=== PATIENT | female | born 1980 | race Caucasian/White ===

== ENCOUNTER 2019-09-04 16:33 | Emergency (ER) | payer BC ==
[2019-09-04 17:52] VITALS: BP 109/71
--- NOTE | 2019-09-04 18:28 | ED Physician Documentation ---
PD HPI URI - Stated complaint Stated Complaint: COUGH,SWEATS,BODY ACHES - Chief complaint Chief Complaint: Resp - History obtained from History obtained from: Patient - History of Present Illness Timing - onset: How many weeks ago (1) Timing duration: Weeks (1) Timing details: Abrupt onset, Still present Associated symptoms: Fever, Nasal congestion, Dry cough. No: Hemoptysis, Chest pain, Dyspnea, NVD, Bilateral edema Contributing factors: No: Sick contact, Travel, Immunocompromised, COPD / asthma Worsened by: Activity (makes her cough and feel dyspneic), Position (trouble sleeping the past few nights, since lying and coughing have kept you from sleeping well.) Similar symptoms before: Has not had sx before Review of Systems Constitutional: reports: Myalgias. denies: Fever, Chills Nose: reports: Congestion. denies: Rhinorrhea / runny nose Throat: reports: Sore throat Cardiac: denies: Palpitations PD PAST MEDICAL HISTORY - Past Medical History Past Medical History: Yes Cardiovascular: None Respiratory: None Endocrine/Autoimmune: HyPOthyroidism - Present Medications Home Medications: Ambulatory Orders Medication Instructions Recorded Confirmed Albuterol Sulf [Ventolin Hfa 2 puffs INH Q4HR PRN #1 inhaler 09/04/19 Inhaler] Benzonatate [Tessalon Perle] 100 - 200 mg PO TID PRN #30 capsule 09/04/19 Doxycycline Monohydrate 100 mg PO BID #14 tablet 09/04/19 dexAMETHasone [Decadron] 4 mg PO DAILY #7 tablet 09/04/19 - Allergies Allergies/Adverse Reactions: Allergies Allergy/AdvReac Type Severity Reaction Status Date / Time No Known Drug Allergies Allergy Verified 09/04/19 17:06 - Social History Does the pt smoke?: No Smoking Status: Never smoker Does the pt drink ETOH?: No Does the pt have substance abuse?: No PD ED PE NORMAL - Vitals Vital signs reviewed: Yes - General General: Alert and oriented X 3, Well developed/nourished - HEENT HEENT: Ears normal, Moist mucous membranes, Pharynx benign - Neck Neck: Supple, no meningeal sign, No JVD - Cardiac Cardiac: RRR, No murmur - Respiratory Respiratory: Clear bilaterally - Abdomen Abdomen: Soft, Non tender, Non distended - Rectal Rectal: Deferred - Derm Derm: Normal color, Warm and dry, No rash - Extremities Extremities: No tenderness to palpate, Normal ROM s pain, No edema, No calf tenderness / cord - Neuro Neuro: Alert and oriented X 3, No motor deficit, Normal speech Results - Vitals Vitals: Vital Signs - 24 hr 09/04/19 09/04/19 09/04/19 17:02 17:52 19:06 Temperature 37.3 C 37.0 C Heart Rate 104 H 108 H 110 H Respiratory 18 17 18 Rate Blood Pressure 131/78 H 109/71 O2 Saturation 97 97 Oxygen O2 Source Room air - Rads (name of study) high Radiology: Prelim report reviewed, Final report received, See rad report PD MEDICAL DECISION MAKING - ED course Complexity details: considered differential, d/w patient Departure - Departure Disposition: 01 Home, Self Care Clinical Impression: Upper respiratory infection Qualifiers: URI type: unspecified URI Qualified Code(s): J06.9 - Acute upper respiratory infection, unspecified Pneumonia Qualifiers: Pneumonia type: due to unspecified organism Laterality: left Lung location: upper lobe of lung Qualified Code(s): J18.9 - Pneumonia, unspecified organism Condition: Stable Record reviewed to determine appropriate education?: Yes Instructions: ED Upper Resp Infec Abx Tx Prescriptions: Albuterol Sulf [Ventolin Hfa Inhaler] 2 puffs INH Q4HR PRN #1 inhaler PRN Reason: Shortness Of Air/Wheezing Benzonatate [Tessalon Perle] 100 - 200 mg PO TID PRN #30 capsule PRN Reason: Cough dexAMETHasone [Decadron] 4 mg PO DAILY #7 tablet Doxycycline Monohydrate 100 mg PO BID #14 tablet Comments: These type of infections commonly are viral. There was a small patch on your x- ray that suggests early pneumonia. This may still be viral but we can treated with an antibiotic as the chance of bacterial does increase with localized infections like that. Stay well-hydrated. Tylenol or ibuprofen if needed for fevers or pains. Use an albuterol inhaler 2 puffs 4 times a day for the next 7 to 10 days and extra times if needed for wheeziness and cough. Decadron steroid for inflammation of the airways to decrease coughing and improve breathing. Tessalon if needed for cough suppression. Doxycycline antibiotic as directed for a week. He should see improvement over the next several days and not feel as bad. However there may be some mild cough that persists for even a couple more weeks even after the infection improves. Discharge Date/Time: 09/04/19 19:24
[2019-09-04] MEDS ORDERED: CHERRY SYRUP 10 ML UDC PO ONE (18:51)
[2019-09-04] MEDS ORDERED: DEXAMETHASONE 10 MG/ML VIAL PO STA (18:51)
[2019-09-04] MEDS ORDERED: BENZONATATE 100 MG CAPSULE PO STA (18:51)
[2019-09-04] MEDS ORDERED: ALBUTEROL NEB 2.5 MG/3 ML INH STA (18:51)
--- NOTE | 2019-09-04 18:52 | XRAY Report ---
Reason: cough Procedure Date: 09/04/2019 Accession Number: [id number] / [id number] Procedure: XR - Chest 2 View X-Ray CPT Code: 28776 Final Report FULL RESULT: EXAM: CHEST RADIOGRAPHY EXAM DATE: 09/04/2019 06:26 PM. CLINICAL HISTORY: Cough. COMPARISON: None. TECHNIQUE: 2 views. FINDINGS: Lungs/Pleura: Subtle lingular groundglass opacities noted. Mild bronchial wall thickening. No effusions or pneumothorax. On lateral view, patchy opacities project over the lower lumbar spine. Mediastinum: Heart and mediastinal contours are unremarkable. Other: None. IMPRESSION: 1. Left upper lobe pneumonia. Recommend follow-up radiographs to document resolution of findings. 2. No effusions or pneumothorax. 3. Bronchial wall thickening concerning for bronchitis or reactive airways disease. RADIA
[2019-09-04] MEDS ORDERED: DOXYCYCLINE 100 MG TABLET PO STA (18:55)
== END 2019-09-04 19:24 | disposition home or self-care (01) ==
LOC: ED 16:33
DX: J06.9 Acute upper respiratory infection, unspecified (principal); J18.9 Pneumonia, unspecified organism
CPT/HCPCS: 71046; 94640; 94664; 99284; A9270

== ENCOUNTER 2020-02-28 11:43 | Outpatient (CLI) | payer MEDICAID ==
[2020-02-28 13:10] LABS: HB2 TOTAL 15.3 g/dL; HEMOGLOBIN A1C 0.52 g/dL; HEMOGLOBIN A1C % 5.3 % (4.6-6.2)
== END 2020-02-28 11:44 | disposition home or self-care (01) ==
LOC: LAB 11:43
PROVIDERS: ATTEND Obstetrics & Gynecology
DX: E28.2 Polycystic ovarian syndrome (principal)
CPT/HCPCS: 36415; 81599; 82951; 83036; 83498; 84146; 84403

== ENCOUNTER 2020-05-13 08:55 | Outpatient (CLI) | payer MEDICAID ==
[2020-05-13 19:16] LABS: CANDIDA GROUP DNA NEGATIVE (NEGATIVE); CANDIDA KRUSEI DNA NEGATIVE (NEGATIVE); TRICHOMONAS VAGINALIS DNA NEGATIVE (NEGATIVE)
== END 2020-05-13 23:59 | disposition home or self-care (01) ==
LOC: LAB.R 08:55
PROVIDERS: ATTEND Obstetrics & Gynecology
DX: N89.8 Other specified noninflammatory disorders of vagina (principal)
CPT/HCPCS: 87661; 87801

== ENCOUNTER 2020-08-12 08:53 | Outpatient (CLI) | payer MEDICAID ==
[2020-08-12 15:45] LABS: ALBUMIN 4.1 g/dL (3.2-5.5); ALBUMIN/GLOBULIN RATIO 1.3 (1.0-2.2); ALKALINE PHOSPHATASE 48 IU/L (42-121); ALT ALANINE AMINOTRANSFERASE 14 IU/L (10-60); AST ASPARTATE AMINOTRANSFERASE 16 IU/L (10-42); BILIRUBIN,TOTAL 0.9 mg/dL (0.2-1.0); BUN - BLOOD UREA NITROGEN 12 mg/dL (6-20); CALCIUM 9.1 mg/dL (8.5-10.3); CARBON DIOXIDE - CO2 23 mmol/L (21-32); CHLORIDE 105 mmol/L (101-111); CHOL/HDL RATIO 3.3 (<4.4); CHOLESTEROL 195 mg/dL; CREATININE 0.9 mg/dL (0.4-1.0); GLUCOSE 83 mg/dL (70-100); HDL CHOLESTEROL 60 mg/dL; LDL CHOLESTEROL,CALCULATED 105 mg/dL; LDL/HDL RATIO 1.8 (<4.4); SODIUM 137 mmol/L (135-145); TOTAL PROTEIN 7.3 g/dL (6.7-8.2); VLDL CHOLESTEROL 30 mg/dL
[2020-08-12 15:55] LABS: THYROID STIMULATING HORMONE 2.41 uIU/mL (0.34-5.60)
[2020-08-12 15:57] LABS: FREE T4 (FREE THYROXINE) 0.98 ng/dL (0.58-1.64)
== END 2020-08-12 08:54 | disposition home or self-care (01) ==
LOC: LAB.S 08:53
PROVIDERS: ATTEND Obstetrics & Gynecology
DX: E03.9 Hypothyroidism, unspecified (principal); E78.1 Pure hyperglyceridemia; E78.5 Hyperlipidemia, unspecified; L68.0 Hirsutism; E28.2 Polycystic ovarian syndrome; Z02.89 Encounter for other administrative examinations; E66.9 Obesity, unspecified
CPT/HCPCS: 36415; 80053; 80061; 83721; 84439; 84443

== ENCOUNTER 2020-11-12 07:00 | Outpatient (CLI) | payer MEDICAID | END 2020-11-12 23:59 | disposition home or self-care (01) | LOC: LAB.S 07:00 | PROVIDERS: ATTEND Physician Assistant Medical | DX: R30.0 Dysuria (principal) | CPT/HCPCS: 87086; 87181 ==

== ENCOUNTER 2021-02-10 09:34 | Outpatient (CLI) | payer MEDICAID ==
[2021-02-10 10:20] VITALS: BP 117/79
--- NOTE | 2021-02-10 10:20 | SLEEP CARE CONSULTATION ---
Information from patient questionnaire entered by Deonna Dowell. I have reviewed and concur with the information entered by Deonna Dowell. This document represents the service I personally performed and the decisions made by me, Frances Benítez ARNP. History of Present Illness Service Date and Time: 02/10/2021 09 Reason for Visit: New patient Chief Complaint: reports: Insomnia, Unrefreshed sleep (sometimes), Snoring (when falls asleep sitting up, other massey she "hums" while sleeping), Excessive daytime sleepiness (some days), Fatigue, Frequent awakenings at night. denies: Observed pauses in breathing Date of Onset: 2-3 years Usual bedtime: 9-10 pm Time it takes to fall asleep: 4-5 hours most nights, 1-2 others Snores at night: No Observed to quit breathing while asleep: No Sleeps alone due to snoring: No Number of times waking at night: 1-2 Reasons for waking at night: reports: Bathroom, Other (unknown reason). denies: Choking, Snoring, Gasping for air Toss, Turn, or Twitch while sleeping: Yes Recalls having dreams: No Usually gets out of bed at: 6-6:30 am Feels refreshed in the morning: Yes (most days) Morning headache: Yes (often, but not daily. Resolves after I take tylenol) Sleepy or fatigued during the day: Yes Ever fallen asleep while driving: No Takes day naps: No Dreams during day naps: No Prior sleep studies: No Additional HPI information: I had the pleasure of seeing AVA MIRAMONTES today regarding the possibility of her having a sleep disorder. Her current complaints are insomnia, frequent night awakenings and fatigue. She can get to sleep from 30 minutes to 2 hours. She goes to bed around 9-10 PM. She only sleeps through night 2 nights a week. She then gets up through night frequently. She wakes up at 5 when gets up for work but does go back to sleep until about 6 AM. Her states she makes a humming sound when sleeping mostly. She has been known to snore when she falls asleep sitting up on couch. She denies any pauses in breathing, gasping or choking in sleep. Her does snore loudly and moves a lot in bed which can occasionally wake her up. She states her mother and father both snore and her father should use a CPAP but is not compliant. Her mother does use some breathing machine to reduce snoring due to her sinuses. She also had a grandfather that has sleep apnea and uses a PAP machine. - Parasomnia Symptoms Ever been unable to move upon waking from sleep: No Walks in sleep: No Talks in sleep: Yes (sometimes, not frequent) Ever acted out dreams in sleep: No Ever felt weak in the knees when startled or emotional: No Bothered by creepy, crawly, restless sensations in legs: Yes (mostly when resting from knees down; gets leg cramps frequently) Problems with memory or concentration: Yes (both, sometimes) Subjective Initial [place] Sleepiness Scale score: 2 (in 2020) Past Medical History Past Medical History: reports: Hypothyroidism, Anxiety, Mood disorder (?; PTSD), GERD Social History The patient's occupation is a [employer]. Patient is and lives in [place]. Have you smoked in the past 12 months: No Quit date: 10/08/2015 Alcohol use: No Caffeine use: Yes Caffeine amount and frequency: 1-3 cups of coffee daily, 1-2 cans 16 oz red bull sugarfree monthly Family History Family history of sleep disordered breathing: Yes Family Hx Sleep Apnea: Mother: Snoring, Sleep apnea - Treated, Father: Snoring, Sleep apnea - Untreated, Grandparent: Snoring, Sleep apnea - Treated Allergies and Home Medications Drug allergies reviewed: Yes (NKDA) Home medication list reviewed: Yes Allergy and home medication list: Spironolactone Omeprazole DR Levothyroxine escitalopram Review of Systems Weight gain over past 5 years: 70-80 Weight loss over past 5 years: 40-50 Gastrointestinal: reports: heartburn (treated) Neurological: denies: headaches Psychiatric: reports: anxiety (treated), depression (treated), mood disorder Ear/Nose/Throat: reports: other (ears feel plugged). denies: tonsillectomy Endocrine: reports: thyroid disease Musculoskeletal: reports: joint pain, neck pain, back pain, joint swelling, muscle pain or cramping Physical Exam Blood Pressure: 117/79 Cuff size: wrist Heart Rate: 66 O2 Saturation: 98 Height: 5 ft 4 in Weight: 190 lb Body Mass Index: 32.5 BMI Classification: Obese Neck circumference: 14.75 (inches) Nostrils: patent to airflow Mouth and throat: narrow oropharynx Soft palate: long Hard palate: normal Uvula: normal Uvula visualization: 50% Mallampati Class II Tongue: enlarged in size with teeth cunningham on lateral edges Tonsils: 2+ Neck: normal w/o lymphadenopathy or thyromegaly Heart: regular rate and rhythm Lungs: clear bilaterally Impression and Plan 1. Suspected Obstructive Sleep Apnea-Hypopnea Syndrome, as suggested by a history of irregular snoring, morning headache, frequent awakening during the night, unrefreshed sleep, and cognitive impairment. Narrow oropharynx and obesity are common predisposing factors for obstructive sleep apnea-hypopnea syndrome. I recommend proceeding to polysomnography to confirm the diagnosis and to assess severity. If the patient has significant sleep disordered breathing, a manual CPAP titration study will also be performed to find the optimal treatment pressure. I informed the patient of what the sleep studies involve and after some discussion, obtained agreement to proceed. The pathophysiology of obstructive sleep apnea-hypopnea syndrome was discussed with the patient and health risks of cardiovascular and cerebrovascular disease if not treated. Risks of drowsy driving discussed in detail and patient advised to avoid long distance driving and to tack puller machine at the first sign of drowsiness. Patient agreed to plan. * Schedule polysomnography +- manual CPAP titration study and return in 1-2 weeks after the study to discuss result and initiate therapy. * Avoid long distance driving or driving when feeling sleepy. * Avoid alcohol, sedative and muscle relaxant around bedtime. * Attempt to lose weight. * Review instructions provided by trained office staff on how to prepare for the sleep study. * Return for follow-up after sleep study completed. Counseling Topics: Weight loss health impact Visit Type: In Office Time Spent with Patient (minutes): 32 Provider Statement: I spent 100% of the Face to Face Visit with the patient with greater than 50% spent counseling the patient and coordination of care.
== END 2021-02-10 09:35 | disposition home or self-care (01) ==
LOC: SC 09:34
PROVIDERS: ATTEND Nurse Practitioner Family
DX: G47.10 Hypersomnia, unspecified (principal); R51.9 Headache, unspecified; G47.8 Other sleep disorders; R06.83 Snoring; R41.89 Other symptoms and signs involving cognitive functions and awareness; E66.9 Obesity, unspecified; Z68.32 Body mass index [BMI] 32.0-32.9, adult
CPT/HCPCS: 99203; 99212

== ENCOUNTER 2021-02-10 13:25 | Outpatient (CLI) | payer MEDICAID | END 2021-02-10 13:26 | disposition home or self-care (01) | LOC: SC 13:25 | PROVIDERS: ATTEND Nurse Practitioner Family | DX: G47.33 Obstructive sleep apnea (adult) (pediatric) (principal); R09.02 Hypoxemia; E66.9 Obesity, unspecified; Z68.32 Body mass index [BMI] 32.0-32.9, adult | CPT/HCPCS: 95806 ==

== ENCOUNTER 2021-02-22 08:00 | Outpatient (CLI) | payer MEDICAID ==
[2021-02-23 18:10] LABS: BACTERIAL VAGINOSIS DNA NEGATIVE (NEGATIVE); CANDIDA GLABRATA DNA NEGATIVE (NEGATIVE); CANDIDA GROUP DNA NEGATIVE (NEGATIVE); CANDIDA KRUSEI DNA NEGATIVE (NEGATIVE); TRICHOMONAS VAGINALIS DNA NEGATIVE (NEGATIVE)
== END 2021-02-22 23:59 | disposition home or self-care (01) ==
LOC: LAB.WC 08:00
PROVIDERS: ATTEND Advanced Practice Midwife
DX: N89.8 Other specified noninflammatory disorders of vagina (principal)
CPT/HCPCS: 87661; 87801

== ENCOUNTER 2021-03-03 13:59 | Outpatient (CLI) | payer MEDICAID ==
--- NOTE | 2021-03-03 14:24 | SLEEP CARE CONSULTATION ---
Information from patient questionnaire entered by Deonna Dowell. I have reviewed and concur with the information entered by Deonna Dowell. This document represents the service I personally performed and the decisions made by , Frances Benítez ARNP. History of Present Illness Service Date and Time: 03/03/2021 1359 Initial Shepherd Sleepiness Scale score: 2 (in 2020) Current Shepherd Sleepiness Scale score: 6 Additional HPI information: AVA MIRAMONTES returns for follow up and results of the recently performed home sleep study. I explained the pathophysiology behind obstructive sleep apnea. We then spent quite a bit of time discussing different treatment options. For mild obstructive sleep apnea, surgery and oral appliance are alternatives to nasal CPAP therapy but in moderate or severe cases, nasal CPAP is the most effective and reliable treatment. Because apnea is primarily in supine position, then positional management therapy could be effective. Methods discussed such as positioning with pillows, using a T-shirt with tennis balls in the back, and shown commercial products that have a pillow format on back to prevent supine sleep. I reviewed the impact of weight changes on sleep apnea and strongly recommended losing weight. [facility] patient education Non Pap treatment pamphlets reviewed and given to patient. Patient does not drink alcohol. Patient was cautioned about risks of drowsy driving until sleepiness symptoms resolve. Sleep Study - Results Type of Sleep Study: Home sleep study Prior sleep studies: No Polysomnography/Home Sleep Study results: Physician Impression: The quality of the study is good. The length of the study is adequate (> 240 minutes). Please also see the tabulated and graphic data. 1. Obstructive Sleep Apnea-Hypopnea (ICD-10 G47.33), mild, with an AHI of 7.1/hr and faiza SaO2 of 90%. During the study, the patient had 26 apneas (26 obstructive, 0 central, 0 mixed) and 21 hypopneas. The longest episode lasted 93.5 seconds. The respiratory events occurred almost exclusively during supine sleep (supine AHI was 10.2 and non-supine, 3.53). 2. Hypoxemia (ICD-10 R09.02), minimal, with the lowest oxygen saturation of 90 % and 0.5 minutes with SaO2 under 90%. Baseline oxygen saturation was normal (Average oxygen saturation was 95%). Allergies and Home Medications Home medication list reviewed: Yes (no changes) Review of Systems Review of systems same as previous: Yes (no changes) Physical Exam Heart Rate: 90 O2 Saturation: 99 Height: 5 ft 4 in Weight: 194 lb Body Mass Index: 33.3 BMI Classification: Obese Impression and Plan 1. Obstructive Sleep Apnea-Hypopnea Syndrome, mild, with lowest oxygen saturation of 90%. Obviously this is the cause of the patients symptoms of unrefreshed sleep, and excessive daytime sleepiness. Positive pressure therapy could benefit anxiety, mood disorders and gastric reflux. Since patients apnea is primarily in supine position, patient advised to try positional therapy and agreed with plan. She is also advised to lose weight as this will reduce snoring and apnea. An oral appliance can also be used for snoring but often is not covered by insurance. Follow up is scheduled for 1-2 months to check effectiveness. * Positional therapy * Attempt to lose weight. * Avoid supine sleep * The patient is again cautioned about driving until sleepiness completely resolves. * Return one month after starting positional therapy. I will assess response to therapy and compliance at that time. Counseling Topics: Sleeping position Visit Type: In Office Time Spent with Patient (minutes): 20 Provider Statement: I spent 100% of the Face to Face Visit with the patient with greater than 50% spent counseling the patient and coordination of care.
== END 2021-03-03 14:00 | disposition home or self-care (01) ==
LOC: SC 13:59
PROVIDERS: ATTEND Nurse Practitioner Family
DX: G47.33 Obstructive sleep apnea (adult) (pediatric) (principal); E66.9 Obesity, unspecified; Z68.33 Body mass index [BMI] 33.0-33.9, adult
CPT/HCPCS: 99212; 99213

== ENCOUNTER 2021-03-27 16:24 | Outpatient (CLI) | payer MEDICAID ==
--- NOTE | 2021-03-27 17:10 | XRAY Report ---
PROCEDURE: Foot 3 View RT INDICATIONS: RIGHT FOOT PAIN TECHNIQUE: 3 views of the foot were acquired. COMPARISON: Right ankle from the same date. No prior foot films. FINDINGS: Bones: Remote placement of a screw in the distal aspect of the first metatarsal. No evidence of hardw are failure or loosening. A C-shaped orthopedic metallic device is chronically present within the bas e of the first proximal phalanx. There is no evidence of hardware failure or loosening. No acute frac tures or dislocations. No suspicious bony lesions. Soft tissues: No tibiotalar joint effusion. Achilles tendon appears normal. IMPRESSION: 1. Orthopedic hardware intact. 2. No evidence of acute bony abnormality of the right foot. Reviewed by: Marc Whitney MD on 03/27/2021 4:08 PM MARNI Approved by: Marc Whitney MD on 03/27/2021 4:08 PM MARNI Station ID: [id number]
--- NOTE | 2021-03-27 17:11 | XRAY Report ---
PROCEDURE: Ankle 3 View RT INDICATIONS: RIGHT ANKLE PAIN TECHNIQUE: 3 views of the ankle were acquired. COMPARISON: Right foot from the same date FINDINGS: Bones: No fractures or dislocations. Ankle mortise is normally aligned. No suspicious bony lesions . Soft tissues: No tibiotalar joint effusion. Achilles tendon appears normal. IMPRESSION: No evidence of acute bony abnormality of the right ankle. Reviewed by: Marc Whitney MD on 03/27/2021 4:09 PM MARNI Approved by: Marc Whitney MD on 03/27/2021 4:09 PM MARNI Station ID: [id number]
== END 2021-03-27 16:25 | disposition home or self-care (01) ==
LOC: DI.S 16:24
PROVIDERS: ATTEND Physician Assistant
DX: M79.671 Pain in right foot (principal); M25.571 Pain in right ankle and joints of right foot

== ENCOUNTER 2021-06-28 11:47 | Outpatient (CLI) | payer MEDICAID ==
[2021-06-28 14:55] LABS: BASOPHILS # (AUTO) 0.1 10^3/uL (0.0-0.1); BASOPHILS % (AUTO) 0.8 %; EOSINOPHILS # (AUTO) 0.2 10^3/uL (0.0-0.7); EOSINOPHILS % (AUTO) 2.2 %; HCT - HEMATOCRIT 41.2 % (37.0-47.0); HGB - HEMOGLOBIN 13.5 g/dL (12.0-16.0); LYMPHOCYTES # (AUTO) 2.7 10^3/uL (1.5-3.5); LYMPHOCYTES % (AUTO) 34.4 %; MEAN CORPUSCULAR HEMOGLOBIN 28.1 pg (27.0-31.0); MEAN CORPUSCULAR HGB CONC 32.8 g/dL (32.0-36.0); MEAN CORPUSCULAR VOLUME 85.7 fL (81.0-99.0); MEAN PLATELET VOLUME 8.7 fL (7.9-10.8); MONOCYTES # (AUTO) 0.6 10^3/uL (0.0-1.0); MONOCYTES % (AUTO) 7.1 %; NEUTROPHILS # (AUTO) 4.3 10^3/uL (1.5-6.6); NEUTROPHILS % (AUTO) 55.2 %; PLT - PLATELET COUNT 295 10^3/uL (130-450); RED BLOOD COUNT 4.81 10^6/uL (4.20-5.40); RED CELL DISTRIBUTION WIDTH 12.8 % (12.0-15.0); WHITE BLOOD COUNT 7.7 x10^3/uL (4.8-10.8)
[2021-06-28 15:24] LABS: ALBUMIN/GLOBULIN RATIO 1.3 (1.0-2.2); ALKALINE PHOSPHATASE 49 IU/L (42-121); ALT ALANINE AMINOTRANSFERASE 28 IU/L (10-60); AST ASPARTATE AMINOTRANSFERASE 23 IU/L (10-42); BILIRUBIN,TOTAL 1.1 mg/dL (0.2-1.0); BUN - BLOOD UREA NITROGEN 9 mg/dL (6-20); CALCIUM 8.8 mg/dL (8.5-10.3); CARBON DIOXIDE - CO2 25 mmol/L (21-32); CHLORIDE 102 mmol/L (101-111); CHOL/HDL RATIO 4.2 (<4.4); CHOLESTEROL 233 mg/dL; CREATININE 0.8 mg/dL (0.4-1.0); GFR - MDRD 80 (>89); GLUCOSE 82 mg/dL (70-100); HDL CHOLESTEROL 56 mg/dL; LDL CHOLESTEROL,CALCULATED 146 mg/dL; LDL/HDL RATIO 2.6 (<4.4); POTASSIUM 3.7 mmol/L (3.5-5.0); SODIUM 138 mmol/L (135-145); TRIGLYCERIDES 154 mg/dL; VLDL CHOLESTEROL 31 mg/dL
[2021-06-28 15:33] LABS: THYROID STIMULATING HORMONE 1.63 uIU/mL (0.34-5.60)
[2021-06-28 20:22] LABS: ESTIMATED AVERAGE GLUCOSE 100 mg/dL (70-100); HEMOGLOBIN A1c% 5.1 % (4.27-6.07)
== END 2021-06-28 11:48 | disposition home or self-care (01) ==
LOC: LAB.S 11:47
PROVIDERS: ATTEND Registered Nurse
DX: G47.00 Insomnia, unspecified (principal); E28.2 Polycystic ovarian syndrome; E03.9 Hypothyroidism, unspecified; R51.9 Headache, unspecified; L68.0 Hirsutism; E78.1 Pure hyperglyceridemia; E78.5 Hyperlipidemia, unspecified
CPT/HCPCS: 36415; 80053; 80061; 83036; 83721; 84443; 85025

== ENCOUNTER 2021-11-25 07:38 | Outpatient (CLI) | payer MEDICAID ==
[2021-11-25 14:46] LABS: HCT - HEMATOCRIT 41.2 % (37.0-47.0); HGB - HEMOGLOBIN 13.7 g/dL (12.0-16.0); MEAN CORPUSCULAR HEMOGLOBIN 27.6 pg (27.0-31.0); MEAN CORPUSCULAR HGB CONC 33.3 g/dL (32.0-36.0); MEAN CORPUSCULAR VOLUME 82.9 fL (81.0-99.0); RED BLOOD COUNT 4.97 10^6/uL (4.20-5.40); RED CELL DISTRIBUTION WIDTH 13.7 % (12.0-15.0); WHITE BLOOD COUNT 6.7 x10^3/uL (4.8-10.8)
[2021-11-25 15:58] LABS: % IRON SATURATION 17 % (20-50); ALBUMIN 3.8 g/dL (3.2-5.5); ALBUMIN/GLOBULIN RATIO 1.2 (1.0-2.2); ALKALINE PHOSPHATASE 48 IU/L (42-121); ALT ALANINE AMINOTRANSFERASE 16 IU/L (10-60); AST ASPARTATE AMINOTRANSFERASE 18 IU/L (10-42); BUN - BLOOD UREA NITROGEN 15 mg/dL (6-20); CALCIUM 8.9 mg/dL (8.5-10.3); CARBON DIOXIDE - CO2 20 mmol/L (21-32); CHLORIDE 106 mmol/L (101-111); CHOL/HDL RATIO 3.9 (<4.4); CHOLESTEROL 193 mg/dL; CREATININE 0.9 mg/dL (0.4-1.0); CRP HIGH SENSITIVITY 5.4 mg/L; GFR - MDRD 70 (>89); GLUCOSE 104 mg/dL (70-100); HDL CHOLESTEROL 49 mg/dL; IRON 67 ug/dL (28-170); LDL CHOLESTEROL,CALCULATED 114 mg/dL; LDL/HDL RATIO 2.3 (<4.4); POTASSIUM 3.8 mmol/L (3.5-5.0); SODIUM 136 mmol/L (135-145); TOTAL IRON BINDING CAPACITY 388 ug/dL (250-450); TOTAL PROTEIN 7.1 g/dL (6.7-8.2); TRANSFERRIN 277 mg/dL (192-382); TRIGLYCERIDES 149 mg/dL; VLDL CHOLESTEROL 30 mg/dL
[2021-11-25 16:02] LABS: T4 (THYROXINE) 12.46 ug/dL (6.09-12.23)
[2021-11-25 16:05] LABS: THYROID STIMULATING HORMONE 3.19 uIU/mL (0.34-5.60)
[2021-11-25 16:10] LABS: FERRITIN 42.3 ng/mL (11.0-306.8)
[2021-11-25 19:48] LABS: ESTIMATED AVERAGE GLUCOSE 103 mg/dL (70-100); HEMOGLOBIN A1c% 5.2 % (4.27-6.07)
== END 2021-11-25 07:39 | disposition home or self-care (01) ==
LOC: LAB.S 07:38
PROVIDERS: ATTEND Obstetrics & Gynecology
DX: E88.81 Metabolic syndrome and other insulin resistance (principal); E28.2 Polycystic ovarian syndrome; Z13.1 Encounter for screening for diabetes mellitus; Z13.220 Encounter for screening for lipoid disorders; Z13.21 Encounter for screening for nutritional disorder; R53.83 Other fatigue
CPT/HCPCS: 36415; 80053; 80061; 82306; 82533; 82728; 83036; 83540; 83721; 84403; 84436; 84443; 84466; 84480; 85027; 86141

== ENCOUNTER 2022-02-11 20:26 | Emergency (ER) | payer MEDICAID ==
--- NOTE | 2022-02-11 21:01 | ED Physician Documentation ---
PD HPI CHEST PAIN - Stated complaint Stated Complaint: CHEST & RIGHT ABD/BACK PX - Chief complaint Chief Complaint: Cardiac - History obtained from History obtained from: Patient - History of Present Illness Timing - onset: How many hours ago (3-4), Today Timing - onset during: Rest Timing - duration: Hours (3-4) Timing - details: Abrupt onset, Still present, Waxing and waning Quality: Aching, Pain Location: Right chest, Other (right upper abd, with radiation to right flank.) Radiation: Back Improved by: No: Rest Worsened by: Palpation (upper right abdomen.). No: Inspiration, Movement Associated symptoms: Nausea, Feeling faint / dizzy. No: Shortness of air, General Weakness, Palpitations, Cough Similar symptoms before: Has not had sx before Review of Systems Constitutional: denies: Fever, Chills Nose: denies: Rhinorrhea / runny nose, Congestion Throat: denies: Sore throat Cardiac: reports: Chest pain / pressure (right lower chest/upper abd area just today.). denies: Palpitations, Pedal edema, Calf pain Respiratory: denies: Dyspnea, Cough, Wheezing GI: reports: Abdominal Pain (right upper), Nausea. denies: Vomiting, Diarrhea : denies: Dysuria Neurologic: denies: Generalized weakness, Focal weakness, Near syncope PD PAST MEDICAL HISTORY - Past Medical History Past Medical History: Yes Cardiovascular: None Respiratory: None Neuro: None Endocrine/Autoimmune: HyPOthyroidism Psych: Depression, Anxiety - Past Surgical History Past Surgical History: No - Present Medications Home Medications: Ambulatory Orders Medication Instructions Recorded Confirmed Bcp 02/11/22 Dextroamphetamine/Amphetamine 20 mg PO DAILY 02/11/22 02/11/22 [Adderall 20 mg Tablet] Dicyclomine [Bentyl] 10 mg PO QID PRN #10 cap 02/11/22 Escitalopram Oxalate 20 mg PO DAILY 02/11/22 02/11/22 HYDROcod/ACETAM 5/325 [[place] 5/325] 1 ea PO Q6H PRN #10 tablet 02/11/22 Levothyroxine Sodium [Levo-T] 1 tab PO DAILY 02/11/22 02/11/22 Ondansetron Odt [Zofran] 4 mg TL Q6H PRN #10 tablet 02/11/22 Spironolactone [Aldactone] 100 mg PO DAILY 02/11/22 02/11/22 - Allergies Allergies/Adverse Reactions: Allergies Allergy/AdvReac Type Severity Reaction Status Date / Time No Known Drug Allergies Allergy Verified 02/11/22 20:38 - Social History Does the pt smoke?: No Smoking Status: Never smoker Does the pt drink ETOH?: No Does the pt have substance abuse?: No - Immunizations Immunizations are current?: Yes - POLST Patient has POLST: No PD ED PE NORMAL - Vitals Vital signs reviewed: Yes - General General: Alert and oriented X 3, No acute distress, Well developed/nourished - Neck Neck: Supple, no meningeal sign, No adenopathy - Cardiac Cardiac: RRR, No murmur - Respiratory Respiratory: Clear bilaterally, Other (no chestwall tenderness. ) - Abdomen Abdomen: Normal bowel sounds, Soft, Non distended, No organomegaly, Other (tender RUQ area with percussion and some rebound. ) - Female Female : Deferred - Rectal Rectal: Deferred - Back Back: No CVA TTP - Derm Derm: Normal color, Warm and dry - Neuro Neuro: Alert and oriented X 3, No motor deficit, No sensory deficit, Normal speech Results - Vitals Vitals: Vital Signs - 24 hr 02/11/22 02/11/22 02/11/22 20:34 20:50 23:02 Temperature 36.8 C Heart Rate 76 66 77 Respiratory 16 14 22 Rate Blood Pressure 135/88 H 102/77 O2 Saturation 100 99 98 02/11/22 23:36 Temperature 37.1 C Heart Rate 84 Respiratory 18 Rate Blood Pressure 117/84 H O2 Saturation 97 Oxygen O2 Source Room air - EKG (time done) 21:21 Rate: Rate (enter#) (66) Rhythm: NSR [place]: Normal Intervals: Normal ID QRS: Normal Ischemia: Normal ST segments. No: ST elevation c/w ischemia, ST depression - Labs Labs: Laboratory Tests 02/11/22 02/11/22 02/11/22 21:25 21:25 21:25 WBC 9.7 RBC 4.62 Hgb 13.1 Hct 38.0 MCV 82.3 MCH 28.4 MCHC 34.5 RDW 13.2 Plt Count 286 MPV 8.5 Neut # (Auto) 6.4 Lymph # (Auto) 2.6 [place] # (Auto) 0.6 Eos # (Auto) 0.1 Baso # (Auto) 0.1 Absolute Nucleated RBC 0.00 Nucleated RBC % 0.0 Sodium 139 Potassium 3.9 Chloride 105 Carbon Dioxide 26 Anion Gap 8.0 BUN 15 Creatinine 0.9 Estimated GFR (MDRD) 70 L Glucose 100 Calcium 9.0 Total Bilirubin 0.4 AST 19 ALT 15 Alkaline Phosphatase 43 Troponin I High Sens < 2.3 L Total Protein 7.0 Albumin 3.9 Globulin 3.1 Albumin/Globulin Ratio 1.3 Lipase 42 - Rads (name of study) RUQ U/S Radiology: Prelim report reviewed (gall stone without wall thickness nor surrounding fluid. ), See rad report chest xray Radiology: Prelim report reviewed (no acute process), See rad report PD MEDICAL DECISION MAKING - ED course Complexity details: re-evaluated patient (improved with Toradol here. ), considered differential (sounds concerning for gallbladder. Can check heart and lungs as well. ), d/w patient Departure - Departure Disposition: 01 Home, Self Care Clinical Impression: Acute upper abdominal pain, Biliary colic symptom Condition: Stable Record reviewed to determine appropriate education?: Yes Instructions: ED Gallstone W Biliary Colic Follow-Up: Kavita Sung ARNP [Primary Care Provider] - Rand Ramirez MD [Provider Admit Priv/Credential] - Prescriptions: Dicyclomine [Bentyl] 10 mg PO QID PRN #10 cap PRN Reason: Abdominal Pain HYDROcod/ACETAM 5/325 [[place] 5/325] 1 ea PO Q6H PRN #10 tablet PRN Reason: Pain Ondansetron Odt [Zofran] 4 mg TL Q6H PRN #10 tablet PRN Reason: Nausea / Vomiting Comments: Your EKG, chest x-ray, troponin blood test are all normal so no signs of heart attack or other heart or lung problems. Your symptoms sound more consistent with gallbladder spasm or esophageal spasm. This may be an isolated event and not be recurring. However if it does recur, I did write for medications of ondansetron if needed for nausea and dicyclomine which is a smooth muscle relaxant for spasm of esophagus or gallbladder. To that add Tylenol or hydrocodone if needed for worse pain. Return to the ER if you have significant episode unrelieved by the above medicines. Follow-up with your primary care or general surgery if you have recurrent episodes that do improve with the medications. However if there is a pattern that develops. For the next several days at least try to have a very low-fat diet to reduce gallbladder spasming. I sent your prescriptions to [facility] in [place]. I am prescribing a short course of narcotic pain medication for you. These are potentially dangerous and addictive medications that should be used carefully. These medications may constipate you. Take an qqdx-vmz-sewlkia stool softener such as docusate twice daily with plenty of water while taking these medic ations. If you go 24 hours without a bowel movement, take demi-xof-tuqkopi MiraLAX, per package instructions. Do not drink or drive while taking these medications. If you received narcotic or sedating medications while in the emergency department do not drive for 24 hours. Store this medication in a safe, secure place and out of reach of children. It is a violation of federal law to give or sell this medication to another person or to use in a manner other than prescribed. The ED will not refill narcotic prescriptions, including prescriptions lost or stolen. You can dispose of unwanted medications at the [facility]'s office or at several pharmacies such as [facility]. Discharge Date/Time: 02/11/22 23:36
[2022-02-11] MEDS ORDERED: KETOROLAC 15 MG/ML VIAL IVP STA (21:15)
[2022-02-11] MEDS ORDERED: ONDANSETRON 4 MG/2 ML VIAL IVP STA (21:15)
[2022-02-11] MEDS ORDERED: SODIUM CHLORIDE 0.9% 1,000 ML IV STA (21:15)
[2022-02-11 21:34] LABS: BASOPHILS # (AUTO) 0.1 10^3/uL (0.0-0.1); BASOPHILS % (AUTO) 0.6 %; EOSINOPHILS # (AUTO) 0.1 10^3/uL (0.0-0.7); EOSINOPHILS % (AUTO) 0.8 %; HGB - HEMOGLOBIN 13.1 g/dL (12.0-16.0); LYMPHOCYTES # (AUTO) 2.6 10^3/uL (1.5-3.5); LYMPHOCYTES % (AUTO) 26.9 %; MEAN CORPUSCULAR HEMOGLOBIN 28.4 pg (27.0-31.0); MEAN CORPUSCULAR HGB CONC 34.5 g/dL (32.0-36.0); MEAN CORPUSCULAR VOLUME 82.3 fL (81.0-99.0); MEAN PLATELET VOLUME 8.5 fL (7.9-10.8); MONOCYTES # (AUTO) 0.6 10^3/uL (0.0-1.0); MONOCYTES % (AUTO) 6.2 %; NEUTROPHILS # (AUTO) 6.4 10^3/uL (1.5-6.6); NEUTROPHILS % (AUTO) 65.3 %; PLT - PLATELET COUNT 286 10^3/uL (130-450); RED BLOOD COUNT 4.62 10^6/uL (4.20-5.40); RED CELL DISTRIBUTION WIDTH 13.2 % (12.0-15.0); WHITE BLOOD COUNT 9.7 x10^3/uL (4.8-10.8)
[2022-02-11 21:48] LABS: ALBUMIN 3.9 g/dL (3.2-5.5); ALBUMIN/GLOBULIN RATIO 1.3 (1.0-2.2); BILIRUBIN,TOTAL 0.4 mg/dL (0.2-1.0); CREATININE 0.9 mg/dL (0.4-1.0); POTASSIUM 3.9 mmol/L (3.5-5.0)
--- NOTE | 2022-02-11 21:52 | XRAY Report ---
PROCEDURE: Chest 1 View X-Ray INDICATIONS: chest pain TECHNIQUE: One view of the chest was acquired. COMPARISON: 09/04/19. FINDINGS: Surgical changes and devices: None. Lungs and pleura: No pleural effusions or pneumothorax. Lungs are clear. Mediastinum: Mediastinal contours appear normal. Heart size is normal. Bones and chest wall: No suspicious bony lesions. Overlying soft tissues appear unremarkable. IMPRESSION: 1. No acute cardiopulmonary disease. Reviewed by: Loy Mcconnell MD on 02/11/2022 9:51 PM PDT Approved by: Loy Mcconnell MD on 02/11/2022 9:51 PM PDT Station ID: [id number]
[2022-02-11] MEDS ORDERED: HYDROcod/ACET 5/325 Prepack 4 PO STA (23:04)
[2022-02-11] MEDS ORDERED: ONDANSETRON ODT 4 MG Prepack 2 TL PRN (23:04)
--- NOTE | 2022-02-11 23:36 | Ultrasound Report ---
PROCEDURE: Abdomen Limited INDICATIONS: RUQ abd pain, onset 5 pm TECHNIQUE: Real-time focused scanning was performed of the abdomen, with image documentation. COMPARISON: None. FINDINGS: Limited evaluation due to patient body habitus and bowel gas. The liver demonstrates increased echogenicity with heterogeneous coarse sonographic echotexture sugge stive of fatty infiltration. There are 2 oval hypodense lesions demonstrated measuring approximately 1.1 x 1 cm and 1.4 x 1.2 cm. No internal vascularity on color Doppler interrogation. These may repre sent hepatic cysts but are not well characterized. The gallbladder demonstrates dependent echogenic stones without a lateral wall thickening or perichol ecystic fluid. No intrahepatic biliary ductal dilatation. There is borderline dilatation of the extrahepatic ducts, with the visualized common bile duct measuring up to 0.7 cm The visualized pancreatic head and body appear unremarkable. Pancreatic tail was not well seen. Right kidney measures 10.1 cm. No hydronephrosis. IMPRESSION: 1. Cholelithiasis without evidence of cholecystitis. 2. Increased hepatic echogenicity and coarse sonographic echotexture suggestive of steatosis. 3. Hypodense lesions in the liver are suggestive of cysts but are not well characterized on the curre nt study. Consider follow-up evaluation with a liver protocol MRI or CT. 4. Borderline biliary ductal dilatation. Recommend correlation with lab values. Reviewed by: Loy Mcconnell MD on 02/11/2022 11:38 PM PDT Approved by: Loy Mcconnell MD on 02/11/2022 11:38 PM PDT Station ID: [id number]
[2022-02-11 23:43] VITALS: BP 117/84
== END 2022-02-11 23:36 | disposition home or self-care (01) ==
LOC: ED 20:26
DX: K80.40 Calculus of bile duct with cholecystitis, unspecified, without obstruction (principal)
CPT/HCPCS: 36415; 80053; 83690; 84484; 85025; 93005; 96374; 99284

== ENCOUNTER 2022-03-31 09:49 | Day surgery (SDC) | payer MEDICAID ==
[~2022-03-31 09:49] MED LIST: BUPIVACAINE 0.25% PF 10 ML VIAL ONE; IOTHALAMATE MEGLUMINE 50 ML VIAL ONE
[2022-03-31] MEDS ORDERED: LACTATED RINGERS 1,000 ML IV ONE ×2 (10:01→13:58)
[2022-03-31] MEDS ORDERED: CEFAZOLIN SODIUM IN 0.9 % NACL 2 GM/50 ML BAG IV ONE (10:05)
[2022-03-31 10:18] LABS: HCG UR QUAL NEGATIVE
[2022-03-31] MEDS ORDERED: ATROPINE ABBOJECT 1 MG/10 ML SYRINGE IVP PRN (10:44)
[2022-03-31] MEDS ORDERED: MORPHINE 2 MG/ML CARPUJECT IVP PRN (10:44)
[2022-03-31] MEDS ORDERED: ONDANSETRON 4 MG/2 ML VIAL IVP PRN ×2 (10:44→14:01)
[2022-03-31] MEDS ORDERED: HYDROmorphone 0.5 MG/0.5 ML SYRINGE IVP PRN ×2 (10:44→14:01)
[2022-03-31] MEDS ORDERED: NALOXONE 0.4 MG/ML VIAL IVP PRN (10:44)
[2022-03-31] MEDS ORDERED: fentaNYL 100 MCG/2 ML VIAL IVP PRN (10:44)
--- NOTE | 2022-03-31 10:45 | ANESTHESIA ---
Pre-Anesthesia VS, & Labs - Diagnosis chronic cholecystitis - Procedure lap jose alberto Vital Signs: Temp Pulse Resp BP Pulse Ox 36.4 C L 74 15 106/74 97 03/31/22 10:09 03/31/22 10:09 03/31/22 10:09 03/31/22 10:09 03/31/22 10:09 Height: 5 ft 4 in Weight (kg): 98.7 kg Body Mass Index: 37.3 BMI Classification: Obese - NPO >8 hours - Is Patient ?: No Home Medications and Allergies Home Medications: Ambulatory Orders Calcium Carbonate [Tums (Calcium Carbonate 500mg)] 500 mg PO PRN PRN 03/24/22 Omeprazole 20 - 40 mg PO DAILY 03/24/22 Zaleplon 5 mg PO QPM PRN 03/24/22 methocarbamoL [Methocarbamol] 750 mg PO Q6HR PRN 03/24/22 Escitalopram Oxalate 20 mg PO DAILY 02/11/22 Levothyroxine Sodium [Levo-T] 1 tab PO DAILY 02/11/22 Spironolactone [Aldactone] 100 mg PO DAILY 02/11/22 Calcium Carbonate [Tums (Calcium Carbonate 500mg)] 500 mg PO PRN PRN 03/24/22 Omeprazole 20 - 40 mg PO DAILY 03/24/22 Zaleplon 5 mg PO QPM PRN 03/24/22 methocarbamoL [Methocarbamol] 750 mg PO Q6HR PRN 03/24/22 Allergies/Adverse Reactions: Allergies Allergy/AdvReac Type Severity Reaction Status Date / Time acetaminophen [From Vicodin] Allergy flu like Verified 03/24/22 12:32 symptoms hydrocodone [From Vicodin] Allergy flu like Verified 03/31/22 10:19 symptoms Anes History & Medical History - Anesthetic History Anesthesia Complications: reports: Post-Operative Nausea/Vomiting - Medical History Cardiovascular: reports: High cholesterol Pulmonary: reports: None Gastrointestinal: reports: GERD (poorly controlled) Urinary: reports: Chronic bladder infection Neuro: reports: None Musculoskeletal: reports: Chronic back pain Endocrine/Autoimmune: reports: HyPOthyroidism Blood Disorders: reports: None Skin: reports: None Smoking Status: Never smoker Psychosocial: reports: Depression, Anxiety History of Cancer?: No - Surgical History Gynecologic: reports: section Orthopedic: reports: Other Exam General: Alert, Oriented x3, Cooperative, No acute distress Dental: WNL Mouth Openin Fingerbreadth Neck Mobility: Normal Mallampati classification: II Thyromental Distance: 4-6 cm Respiratory: Lungs clear, Normal breath sounds, No respiratory distress, No accessory muscle use Cardiovascular: Regular rate, Normal S1, Normal S2, No murmurs Mental/Cognitive Status: Alert/Oriented X3, Normal for patient Plan Anesthesia Type: General Consent for Procedure(s) Verified and Reviewed: Yes Code Status: Attempt Resuscitation ASA classification: 2-Mild systemic disease Is this case an emergency?: No
[2022-03-31] MEDS ORDERED: LACTATED RINGERS 1,000 ML IV SCH (11:00)
[2022-03-31] MEDS ORDERED: SCOPOLAMINE PATCH TOP ONE (11:31)
[2022-03-31] MEDS ORDERED: SCOPOLAMINE PATCH TOP SCH (12:00)
[2022-03-31] MEDS ORDERED: ROCURONIUM 50 MG/5 ML VIAL ONE (12:11)
[2022-03-31] MEDS ORDERED: PROPOFOL 200 MG/20 ML VIAL IVP ONE ×2 (12:11→13:52)
[2022-03-31] MEDS ORDERED: LIDOCAINE-MPF 2% 5 ML VIAL ONE (12:11)
[2022-03-31] MEDS ORDERED: fentaNYL 100 MCG/2 ML VIAL ONE (12:12)
[2022-03-31] MEDS ORDERED: MIDAZOLAM 2 MG/2 ML VIAL ONE (12:12)
[2022-03-31] MEDS ORDERED: BUPIVACAINE 0.25% PF 10 ML VIAL ONE ×2 (12:36→13:21)
[2022-03-31] MEDS ORDERED: ONDANSETRON 4 MG/2 ML VIAL ONE ×2 (12:49→14:29)
[2022-03-31] MEDS ORDERED: DEXAMETHASONE 4 MG/ML VIAL ONE (12:49)
[2022-03-31] MEDS ORDERED: ACETAMINOPHEN 1,000 MG/100 ML 100 ML IV ONE (12:54)
[2022-03-31] MEDS ORDERED: BUPIVACAINE 0.25% PF 30 ML VIAL SUBQ ONE ×3 (13:03)
[2022-03-31] MEDS ORDERED: KETOROLAC 30 MG/ML VIAL ONE (13:40)
[2022-03-31] MEDS ORDERED: oxyCODONE 5 MG TABLET PO PRN (14:01)
--- NOTE | 2022-03-31 14:27 | OPERATIVE REPORT ---
Operative Report - General Procedure Date: 03/31/22 Planned Procedure: lap jose alberto Pre-Op Diagnosis: chronic cholecystitis Procedure Performed: lap jose alberto Post Op Diagnosis: chronic cholecystitis - Procedure Note Primary Surgeon: massiel linares md Anesthesia Technique: General ET tube, Local Pathology: gallbladder Estimated Blood Loss (mL): 10 Drain/Tube Type: Other (none) Indications: gallbladder pain Findings: chronic cholecystitis healthy appearing liver obstructing stones Complications: none - Other Other Information/Narrative: The patient was properly identified, brought to the operating room and placed in supine position. Sequential compression devices were placed. General endotracheal anesthesia was induced. The patient was prepped and draped in a sterile fashion and given preoperative antibiotics. Local anesthetic was given to incision areas. An incision was made in the periumbilical area. Dissection proceeded down to fascia. The fascia was incised lifted upwards and abdomen entered with a Veress needle. CO2 was insufflated to a pressure of 15. An 11 mm trocar followed by a 30 degree scope was placed. There was no evidence of in jury from Veress needle or trocar placement. Under direct vision 2 5 mm trochars were placed in the right upper quadrant and an 11 mm trocar was placed in the epigastrium. Body of the gallbladder was retracted anterior. Lateral attachments were partially taken down further mobilizing the gallbladder more anterior and away from the duodenum. The infundibulum of the gallbladder was then retracted right lateral and caudad. With minimal use of cautery a large bare cystic plate area or window was carefully created. The cystic duct was inspected from right lateral and left lateral positions. [] The cystic duct was then clipped at the gallbladder and 3 times slightly proximal and sharply divided. The cystic artery was clipped at the gallbladder and then 2 times slightly proximal and sharply divided. The gallbladder was mobilized off from the bed of the liver with hook cautery. The gallbladder was placed in Endo Catch bag and brought out through the epigastric trocar site. Hemostasis was assured. Trochars were removed under direct vision. Fascia at the larger trocar sites was closed with [id number] are running 0 Vicryl suture. Subcutaneous tissue was irrigated and skin closed with interrupted 4-0 Monocryl. Dressings were applied. Patient tolerated the procedure well was awakened and brought to recovery in good condition.
[2022-03-31] MEDS ORDERED: HYDROmorphone 0.5 MG/0.5 ML SYRINGE ONE (14:39)
--- NOTE | 2022-03-31 14:50 | ANESTHESIA POST OP EVALUATION ---
Anesthesia Post Eval - Post Anesthesia Eval Vitals: Last Vital Signs Temp 36.4 C L 03/31/22 14:36 Pulse 73 03/31/22 14:36 Resp 16 03/31/22 14:36 BP 112/73 03/31/22 14:36 Pulse Ox 93 03/31/22 14:36 CV Function Including HR & BP: Stable Pain Control: Satisfactory Nausea & Vomiting: Negative Mental Status: Baseline Respiratory Status: Airway Patent Hydration Status: Satisfactory Anesthesia Complications: None
[2022-03-31] MEDS ORDERED: oxyCODONE 5 MG TABLET ONE (15:29)
[2022-03-31 15:46] VITALS: BP 114/76
== END 2022-03-31 09:50 | disposition home or self-care (01) ==
LOC: SDS 09:49
PROVIDERS: ATTEND Surgery
PROC: 0FT44ZZ Resection of Gallbladder, Percutaneous Endoscopic Approach (ICD-10-PCS; principal; 2022-03-31 11:00)
DX: K80.10 Calculus of gallbladder with chronic cholecystitis without obstruction (principal); E66.9 Obesity, unspecified; Z68.37 Body mass index [BMI] 37.0-37.9, adult; K21.9 Gastro-esophageal reflux disease without esophagitis
CPT/HCPCS: 47562; 81025; A9270; J0131; J0690; J1170; J3490; J7120; Q9961

== ENCOUNTER 2022-08-02 09:44 | Outpatient (CLI) | payer MEDICAID ==
[2022-08-02 14:23] LABS: HCT - HEMATOCRIT 42.9 % (37.0-47.0); HGB - HEMOGLOBIN 13.6 g/dL (12.0-16.0); MEAN CORPUSCULAR HEMOGLOBIN 26.9 pg (27.0-31.0); MEAN CORPUSCULAR HGB CONC 31.7 g/dL (32.0-36.0); MEAN CORPUSCULAR VOLUME 84.8 fL (81.0-99.0); MEAN PLATELET VOLUME 8.8 fL (7.9-10.8); RED BLOOD COUNT 5.06 10^6/uL (4.20-5.40); RED CELL DISTRIBUTION WIDTH 13.2 % (12.0-15.0); WHITE BLOOD COUNT 8.3 x10^3/uL (4.8-10.8)
[2022-08-02 14:53] LABS: THYROID STIMULATING HORMONE 2.53 uIU/mL (0.34-5.60)
[2022-08-02 14:54] LABS: FREE T4 (FREE THYROXINE) 0.75 ng/dL (0.58-1.64)
[2022-08-02 14:57] LABS: FERRITIN 48.1 ng/mL (11.0-306.8)
[2022-08-02 21:59] LABS: ESTIMATED AVERAGE GLUCOSE 105 mg/dL (70-100); HEMOGLOBIN A1c% 5.3 % (4.27-6.07)
[2022-08-03 19:07] LABS: ANTI-DNA (DS) AB QN 1 IU/mL (0-9); CENTROMERE B ANTIBODIES <0.2 AI (0.0-0.9); CHROMATIN ANTIBODIES 0.2 AI (0.0-0.9); JO-1 AB <0.2 AI (0.0-0.9); RIBOSOMAL P ANTIBODIES <0.2 AI (0.0-0.9); SCLERODERMA-70 ANTIBODIES <0.2 AI (0.0-0.9); SJOGREN'S ANTI-SS-A <0.2 AI (0.0-0.9); SJOGREN'S ANTI-SS-B <0.2 AI (0.0-0.9); SMITH ANTIBODIES <0.2 AI (0.0-0.9); SMITH/RNP ANTIBODIES <0.2 AI (0.0-0.9)
== END 2022-08-02 09:45 | disposition home or self-care (01) ==
LOC: LAB.S 09:44
PROVIDERS: ATTEND Nurse Practitioner
DX: E28.2 Polycystic ovarian syndrome (principal); E66.9 Obesity, unspecified; R53.83 Other fatigue
CPT/HCPCS: 36415; 82728; 83036; 83516; 84439; 84443; 85027; 86225; 86235

== ENCOUNTER 2022-09-05 08:00 | Outpatient (CLI) | payer MEDICAID ==
[2022-09-05 22:20] LABS: BACTERIAL VAGINOSIS DNA NEGATIVE (NEGATIVE); CANDIDA GLABRATA DNA NEGATIVE (NEGATIVE); CANDIDA GROUP DNA POSITIVE (NEGATIVE); CANDIDA KRUSEI DNA NEGATIVE (NEGATIVE); TRICHOMONAS VAGINALIS DNA NEGATIVE (NEGATIVE)
== END 2022-09-05 23:59 | disposition home or self-care (01) ==
LOC: LAB.WC 08:00
PROVIDERS: ATTEND Nurse Practitioner
DX: L29.8 Other pruritus (principal)
CPT/HCPCS: 81514

== ENCOUNTER 2023-10-19 08:00 | Outpatient (CLI) | payer MEDICAID, OTHER ==
[2023-10-19 18:40] LABS: BILIRUBIN,URINE NEGATIVE (NEGATIVE); GLUCOSE, URINE (UA) NEGATIVE (NEGATIVE); KETONES,URINE (UA) TRACE mg/dL (NEGATIVE); LEUKOCYTE ESTERASE, URINE SMALL (NEGATIVE); NITRITE,URINE NEGATIVE (NEGATIVE); OCCULT BLOOD,URINE TRACE-INTA (NEGATIVE); PH,URINE 5.5 PH (5.0-7.5); PROTEIN,URINE NEGATIVE (NEGATIVE); UROBILINOGEN,URINE 0.2 (NORMAL) E.U./dL (NORMAL)
[2023-10-19 19:22] LABS: CLARITY,URINE CLEAR (CLEAR)
[2023-10-19 19:23] LABS: RBC,URINE 0-5 /HPF (0-5); SQUAMOUS EPITHELIAL CELL,UR RARE Squamous (<= Few)
[2023-10-19 19:24] LABS: BACTERIA,URINE Many /HPF (None Seen); CRYSTALS,URINE 0-2 Calcium Oxalate /LPF
[2023-10-19 20:09] LABS: BACTERIAL VAGINOSIS DNA POSITIVE (NEGATIVE); CANDIDA GLABRATA DNA NEGATIVE (NEGATIVE); CANDIDA GROUP DNA NEGATIVE (NEGATIVE); CANDIDA KRUSEI DNA NEGATIVE (NEGATIVE); TRICHOMONAS VAGINALIS DNA NEGATIVE (NEGATIVE)
== END 2023-10-19 23:59 | disposition home or self-care (01) ==
LOC: LAB.WC 08:00
PROVIDERS: ATTEND Nurse Practitioner
DX: R30.0 Dysuria (principal); N89.8 Other specified noninflammatory disorders of vagina
CPT/HCPCS: 81001; 81514; 87077; 87086; 87181